=== PATIENT | female | born 1945 | race African-American/Black ===

== ENCOUNTER → 2016-09-15 | Day surgery (SDC) | payer OTHER, MEDICARE ==
--- NOTE | 2016-09-16 13:44 | PATH ---
Cytology Non-Gynecological Report Patient Name: JACKSON GUPTA [facility]. Rec. #: [id number] /Age/Gender: 1945 (Age: 70) / F Account: [id number] Location: RADIOLOGY Taken: 09/15/2016 Received: 09/15/2016 Reported: 09/16/2016 Physicians: Shameka Chery M.D. Specimen(s) Received RIGHT THYROID FNA Clinical History Right thyroid nodule, 1.90 x 1.71 x 1.91 cm Final Diagnosis THYROID GLAND, RIGHT LOBE, US GUIDED FINE NEEDLE ASPIRATION BIOPSY: SATISFACTORY FOR EVALUATION. NO MALIGNANT CELLS IDENTIFIED. CONSISTENT WITH NODULAR GOITER (BENIGN FOLLICULAR NODULE, B[place]ESDA CATEGORY II, BENIGN), SEE COMMENT. Comment: The smears and the cell blocks show clusters of bland-appearing follicular epithelial cells arranged in mixed macro- and microfollicles. 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 Colloid is present. Electronically Signed Jonathan Hearn M.D. Gross Description Received are four air dried smears, four smears in 95% alcohol, and 20 cc of bloody fluid in formalin. Four diff-quik stained slides, four Pap stained slides and one cell block are made.
== END | disposition home or self-care (01) ==
LOC: JRADIR 08:29
PROVIDERS: ATTEND Internal Medicine Endocrinology, Diabetes & Metabolism
PROC: 0GBH3ZX Excision of Right Thyroid Gland Lobe, Percutaneous Approach, Diagnostic (ICD-10-PCS; principal; 2016-09-15)
PROC: BG44ZZZ Ultrasonography of Thyroid Gland (ICD-10-PCS; 2016-09-15)
DX: E04.8 Other specified nontoxic goiter (principal); Z90.89 Acquired absence of other organs
CPT/HCPCS: 76942; 88173; 88305-TC

== ENCOUNTER → 2021-02-21 | Day surgery (SDC) | payer OTHER, MEDICARE | END | disposition home or self-care (01) | LOC: JRADIR 10:06 | PROVIDERS: ATTEND Internal Medicine Endocrinology, Diabetes & Metabolism | PROC: 0G9H3ZX Drainage of Right Thyroid Gland Lobe, Percutaneous Approach, Diagnostic (ICD-10-PCS; principal; 2021-02-21) | DX: E04.1 Nontoxic single thyroid nodule (principal) | CPT/HCPCS: 10005; 76942 ==

== ENCOUNTER → 2021-10-31 | Day surgery (SDC) | payer OTHER, MEDICARE | END | disposition home or self-care (01) | LOC: JRADIR 09:00 | PROVIDERS: ATTEND Internal Medicine Endocrinology, Diabetes & Metabolism | PROC: 0G9K3ZX Drainage of Thyroid Gland, Percutaneous Approach, Diagnostic (ICD-10-PCS; principal; 2021-10-31) | DX: E04.1 Nontoxic single thyroid nodule (principal) | CPT/HCPCS: 10005; 76942; 88173; 88305-TC ==